=== PATIENT | male | born 1950 | race Caucasian/White ===

== ENCOUNTER 2018-01-16 09:04 | Day surgery (SDC) | payer BC ==
[2018-01-16 09:12] LABS: Absolute Lymphocytes (CBC) 1.4 K/uL (0.7-4.9); Absolute Monocytes 0.5 K/uL (0.1-1.3); Absolute Neutrophil 4.4 K/uL (1.8-8.0); Basophils % 0.5 % (0-1.3); Eosinophils % 2.1 % (0-4.4); MCH 31.9 pg (27.0-35.0); MCV 91.2 fL (80-100); MPV 7.5 fL (7.6-11.3); Monocytes % 7.4 % (3.3-12.3); RBC Red Blood Cell Count 4.28 M/uL (4.33-5.43)
[2018-01-16] MEDS ORDERED: CEFAZOLIN/SWI 1gm 1 GM/10 ML SYR ONE (09:17)
[2018-01-16] MEDS ORDERED: Ringers Lactate 1,000 ML IV ONE (09:17)
[2018-01-16 09:23] LABS: BUN Blood Urea Nitrogen 12 mg/dL (7-18); Bicarbonate 27 mmol/L (21-32); Glucose Level 102 mg/dL (74-106); Potassium 3.6 mmol/L (3.5-5.1); Sodium Level 136 mmol/L (136-145)
--- NOTE | 2018-01-16 10:03 | RAD REPORT ---
EXAM DESCRIPTION: Harini Pillai (2 Views)01/16/2018 8:49 am CLINICAL HISTORY: Preop for humerus surgery. Prostate cancer COMPARISON: None FINDINGS: The lungs appear clear of acute infiltrate. The heart is normal size IMPRESSION: No acute abnormalities displayed
[2018-01-16] MEDS ORDERED: PROPOFOL 200 MG/20 ML VIAL IV ONE (10:13)
[2018-01-16] MEDS ORDERED: FENTANYL CITR 100 MCG/2 ML ONE (10:13)
[2018-01-16] MEDS ORDERED: LIDOCAINE 2% MPF 5 ML VIAL ONE (10:14)
[2018-01-16] MEDS ORDERED: MIDAZOLAM HCL 2 MG/2 ML INJ ONE (10:14)
[2018-01-16] MEDS ORDERED: ROCURONIUM 50 MG/5 ML VIAL IV ONE (10:50)
[2018-01-16] MEDS ORDERED: KETOROLAC 30 MG/ML INJ ONE (11:05)
--- NOTE | 2018-01-16 11:16 | P.BOP ---
Preoperative diagnosis: cellulitis right arm with infected tender large subcutaneous mass Postoperative diagnosis: same Primary procedure: 1. Excisional biopsy of right arm subcut. mass 7x8cm Secondary procedure: 2. Drainage of complex asbscess right arm down to fascia of muscle Estimated blood loss: <20cc Specimen: mass, culture Findings: mass with abscess, some of the fascia of the muscle had to be debrided Anesthesia: General Transferred to: Recovery Room Condition: Good
--- NOTE | 2018-01-16 13:31 | EKG ---
Test Date: 2018-01-16 Test Time: 08:31:30 Distribution Warehouse Manager: RUBÉN MEASUREMENT RESULTS: Intervals: Rate: 80 UT: 192 QRSD: 98 QT: 402 QTc: 463 [place]: P: 47 UT: 192 QRS: -3 T: 31 INTERPRETIVE STATEMENTS: Normal sinus rhythm Prolonged QT Abnormal ECG Electronically Signed On 01-16-18 13:30:43 [employer] TURNER by Driss Watkins
--- NOTE | 2018-01-23 20:21 | OP ---
Date of Procedure: 01/16/2018 Surgeon: Bharat Blank MD Preoperative Diagnosis: Cellulitis right arm with infected tender and large subcutaneous mass. Postoperative Diagnosis: Cellulitis right arm with infected tender and large subcutaneous mass. Procedures: 1.Excisional biopsy of right arm subcutaneous mass 7 x 8 cm. 2.Drainage of a complex abscess right arm down to fascia of the muscle. Estimated Blood Loss: Less than 20 cc. Specimen: Mass and culture. Findings: Mass with abscess. Some of the fascia of the muscle has to be debrided with specimen. Indications: This is the case of a male, who comes to us with a large infected mass in the right arm region. The patient has some other areas of cellulitis around the area. The benefits, alternatives , and risks of mass excision with drainage of an abscess were fully explained which include but are n ot limited to infection, bleeding, damage to adjacent structures, anesthesia complication, nonhealing wound, ND, and even . He also understands this may not relieve any symptoms and he might need more than one surgical intervention. He understands he will require wound care. Description Of Procedure: The patient was brought to the operating room, placed in supine position. Anesthesia was done without complication. A time-out was called. Right arm was prepped and draped in a sterile fashion followed by sharp incision of the skin. This led us into a mass area. Some of the skin had to be removed with the specimen. The mass goes and deep to the mass there is an abscess in that region that goes and involves some of the fascia of the muscle that had to be debrided with the specimen. All the pus was removed. Loculations were explored and opened around this complex abs cess that involved with a cyst. The area was irrigated. Hemostasis obtained, and then the area was packed with wet-to-dry dressing. The patient tolerated the procedure well. The patient was sent to recovery in stable condition. Sponge count and instrument counts were correct. KEVIN/MELVIN Voice ID: [id number] Report ID: [id number]
--- NOTE | 2018-01-23 20:27 | DS ---
Date of Discharge: 01/16/2018 Diagnosis: Right arm abscess with infected mass. Procedure: Excisional biopsy of right arm subcutaneous mass with drainage of a complex abscess. Disposition: Home. Activity: As tolerated. No heavy lifting. Followup: Follow up in my office in 1 week, call for appointment [phone]. Wet-to-dry dressing eufemia [place] Patient will do the dressing change himself, he feels comfortable with that. Medications: See orders. KEVIN/MELVIN Voice ID: [id number] Report ID: [id number]
== END 2018-01-16 13:43 | disposition home or self-care (01) ==
LOC: OR 09:04
PROVIDERS: ATTEND Surgery
PROC: 0JBD0ZZ Excision of Right Upper Arm Subcutaneous Tissue and Fascia, Open Approach (ICD-10-PCS; 2018-01-16)
PROC: 0J9D0ZZ Drainage of Right Upper Arm Subcutaneous Tissue and Fascia, Open Approach (ICD-10-PCS; principal; 2018-01-16 10:30)
DX: L72.0 Epidermal cyst (principal); L02.413 Cutaneous abscess of right upper limb; I10 Essential (primary) hypertension; K21.9 Gastro-esophageal reflux disease without esophagitis; E78.00 Pure hypercholesterolemia, unspecified; Z82.49 Family history of ischemic heart disease and other diseases of the circulatory system
CPT/HCPCS: 36415; 71046; 80048; 85025; 87070; 87075; 87205; 88304; 93005; J0690; J2250; J2704; J3010